=== PATIENT | female | born 1945 | race Two or more races ===

== ENCOUNTER 2016-06-29 10:38 | Emergency (ER) | payer MEDICARE, BC ==
[2016-06-29 11:20] VITALS: BP 151/74
--- NOTE | 2016-06-29 12:14 | UC ---
Throat Pain/Nasal Celio HPI - HPI Summary HPI Summary: Had a day or two of R-sided throat pain starting 06/20/16. Pain improved but then she developed throat irritation and itching that leads to lots of coughing with speaking or when she tries to sleep. Denies fever or trouble breathing. Has been having increase in thin clear watery drainage from the nose, states is is not mucusy. - History of Current Complaint Chief Complaint: UCGeneralIllness Stated Complaint: SORE THROAT,COUGH Time Seen by Provider: 06/29/16 11:56 Hx Obtained From: Patient ?: No Onset/Duration: Gradual Onset, Lasting Days Severity: Mild Cough: Nonproductive Associated Signs & Symptoms: Positive: Nasal Discharge - Allergies/Home Medications Allergies/Adverse Reactions: Allergies Allergy/AdvReac Type Severity Reaction Status Date / Time CI Pigment Blue 63 Allergy Intermediate Nausea Verified 06/29/16 11:20 [From Pradaxa] Dabigatran [From Pradaxa] Allergy Intermediate Nausea Verified 06/29/16 11:20 Rivaroxaban [From Xarelto] Allergy Intermediate Coughing Verified 06/29/16 11:20 Yellow Dye [From Pradaxa] Allergy Intermediate Nausea Verified 06/29/16 11:20 Hydrochlorothiazide Allergy Unknown Unknown Verified 06/29/16 11:20 [From Zestoretic] Reaction Details Lisinopril [From Zestoretic] Allergy Unknown Unknown Verified 06/29/16 11:20 Reaction Details Environmental Allergies Allergy Intermediate Eyes Uncoded 06/29/16 11:20 Itchy/Swollen/Red/Watery Home Medications: Home Medications Acetaminophen [Tylenol] 1 cap PO Q4HR PRN 06/29/16 [History Confirmed 06/29/16] PMH/Surg Hx/FS Hx/Imm Hx Endocrine History Of: Reports: Thyroid Disease - nodules Denies: Diabetes Cardiovascular History Of: Reports: Cardiac Disorders - afib, Hypertension, Atrial Fibrillation Denies: Pacemaker/ICD, Congestive Heart Failure Respiratory History Of: Denies: COPD, Asthma GI/ History Of: Reports: Renal Disease - kidney cysts Denies: Ulcer Cancer History Of: Denies: Breast Cancer Other History Of: Negative For: Anticoagulant Therapy - Surgical History Surgical History: Yes Surgery Procedure, Year, and Place: Rt KNEE ARTHROSCOPY-03/2010 MOLE REMOVED TONSILECTOMY - Family History Known Family History: Positive: Hypertension - Social History Alcohol Use: None Substance Use Type: None Smoking Status (MU): Former Smoker Type: Cigarettes Amount Used/How Often: social Have You Smoked in the Last Year: No When Did the Patient Quit Smoking/Using Tobacco: quit in her 30's Review of Systems Constitutional: Negative Skin: Negative Eyes: Negative ENT: Sore Throat, Nasal Discharge Respiratory: Cough Cardiovascular: Negative Gastrointestinal: Negative Genitourinary: Negative Motor: Negative Neurovascular: Negative Musculoskeletal: Negative Neurological: Negative Psychological: Negative All Other Systems Reviewed And Are Negative: Yes Physical Exam Triage Information Reviewed: Yes Appearance: Well-Appearing, No Pain Distress, Well-Nourished Vital Signs: Initial Vital Signs Temp 98.2 F 06/29/16 11:14 Pulse 74 06/29/16 11:14 Resp 16 06/29/16 11:14 BP 151/74 06/29/16 11:14 Pulse Ox 98 06/29/16 11:14 Vital Signs Reviewed: Yes Eye Exam: Normal Eyes: Positive: Conjunctiva Clear ENT: Positive: Hearing grossly normal, Nasal congestion, TMs normal. Negative: Tonsillar swelling, Tonsillar exudate Dental Exam: Other - dentures Neck exam: Other - goiter Neck: Positive: Nontender Respiratory Exam: Normal Respiratory: Positive: Chest non-tender, Lungs clear, Normal breath sounds, No respiratory distress, No accessory muscle use Cardiovascular Exam: Normal Cardiovascular: Positive: RRR, No Murmur Musculoskeletal Exam: Normal Neurological Exam: Normal Psychological Exam: Normal Skin Exam: Normal Throat Pain/Nasal Course/Dx - Differential Dx/Diagnosis Provider Diagnoses: allergic rhinitis. post-nasal drip Discharge - Discharge Plan Condition: Stable Disposition: HOME Prescriptions: Cetirizine* [ZyrTEC 10 MG TAB*] 10 mg PO DAILY #30 tab Fluticasone NASAL SPRAY 50MCG* [Flonase NASAL SPRAY 50MCG*] 2 spray BOTH NARES DAILY #1 btl Patient Education Materials: Allergic Rhinitis (ED) Referrals: Cherelle Dsouza MD [Primary Care Provider] - Additional Instructions: Remember it can take several days for the nasal spray to take full effect. If you have no improvement (or any significant worsening) in the next week or so, please see your primary care provider right away.
== END 2016-06-29 12:15 | disposition home or self-care (01) ==
LOC: UCEAST 10:38
DX: J30.9 Allergic rhinitis, unspecified (principal); R09.82 Postnasal drip; E04.1 Nontoxic single thyroid nodule; I48.91 Unspecified atrial fibrillation; I10 Essential (primary) hypertension; Z87.891 Personal history of nicotine dependence
CPT/HCPCS: 99212; G0463

== ENCOUNTER 2016-11-17 20:28 | Emergency (ER) | payer MEDICARE, BC ==
[2016-11-17 20:36] VITALS: BP 154/82
--- NOTE | 2016-11-17 21:50 | UC ---
Skin Complaint HPI - HPI Summary HPI Summary: Patient presents to the with avulsion to the right distal little finger from a cheese grater which occurred 1 hour ago. Minimal blood loss. Denies blood thinners. Nail is intact. Good pulses +2 bilaterally and good capillary refill. She has injured this area of skin previously. She denies pain. Small avulsion measuring 1cm in the distal tip with no exposed fracture or bone. - History of Current Complaint Chief Complaint: UCLaceration Time Seen by Provider: 11/17/16 20:40 Stated Complaint: FINGER LAC Hx Obtained From: Patient ?: No Onset/Duration: Sudden Onset Timing: Constant Onset Severity: Moderate Current Severity: Moderate Pain Intensity: 4 Pain Scale Used: 0-10 Numeric Location: Hand (Left) Character: Pain Aggravating: Nothing Alleviating: Nothing Related History: Trauma - Allergy/Home Medications Allergies/Adverse Reactions: Allergies Allergy/AdvReac Type Severity Reaction Status Date / Time CI Pigment Blue 63 Allergy Intermediate Nausea Verified 11/17/16 20:36 [From Pradaxa] Dabigatran [From Pradaxa] Allergy Intermediate Nausea Verified 11/17/16 20:36 Rivaroxaban [From Xarelto] Allergy Intermediate Coughing Verified 11/17/16 20:36 Yellow Dye [From Pradaxa] Allergy Intermediate Nausea Verified 11/17/16 20:36 Hydrochlorothiazide Allergy Unknown Unknown Verified 11/17/16 20:36 [From Zestoretic] Reaction Details Lisinopril [From Zestoretic] Allergy Unknown Unknown Verified 11/17/16 20:36 Reaction Details Environmental Allergies Allergy Intermediate Eyes Uncoded 06/29/16 11:20 Itchy/Swollen/Red/Watery Review of Systems Constitutional: Negative Skin: Other - avulsion Eyes: Negative Respiratory: Negative Cardiovascular: Negative Neurovascular: Negative Musculoskeletal: Negative Neurological: Negative All Other Systems Reviewed And Are Negative: Yes PMH/Surg Hx/FS Hx/Imm Hx Previously Healthy: Yes Other History Of: Negative For: Anticoagulant Therapy - Surgical History Surgical History: Yes Surgery Procedure, Year, and Place: Rt KNEE ARTHROSCOPY-03/2010, MOLE REMOVED, TONSILECTOMY, CARDIAC ABLATION FOR ATRIAL FIB - Family History Known Family History: Positive: Hypertension - Social History Occupation: Unemployed, Retired Lives: With Family Alcohol Use: None Substance Use Type: None Smoking Status (MU): Former Smoker Type: Cigarettes Amount Used/How Often: social Have You Smoked in the Last Year: No When Did the Patient Quit Smoking/Using Tobacco: quit in her 30's - Immunization History Most Recent Tetanus Shot: <5 YEARS ( OF 11/17/16) Physical Exam Triage Information Reviewed: Yes Appearance: Well-Appearing, No Pain Distress, Well-Nourished Vital Signs: Initial Vital Signs Temp 98.6 F 11/17/16 20:31 Pulse 67 11/17/16 20:31 Resp 16 11/17/16 20:31 BP 154/82 11/17/16 20:31 Vital Signs Reviewed: Yes Eye Exam: Normal Eyes: Positive: Conjunctiva Clear Neck exam: Normal Neck: Positive: Supple Respiratory Exam: Normal Respiratory: Positive: Chest non-tender, Normal breath sounds Cardiovascular Exam: Normal Musculoskeletal Exam: Normal Musculoskeletal: Positive: Strength Intact Neurological: Positive: Alert Psychological: Positive: Normal Response To Family, Age Appropriate Behavior Skin: Positive: Other - 1cm avulsion to distal tip Course/Dx - Course Course Of Treatment: wound cleansed and irrigated with NS. occlusive form ( xeroform) gauze applied, finger gauze applied and taped. Patient given care instructions to change the dressing once daily x 3 days. No abx needed. Tetanus UTD x 4 years ago. - Differential Diagnoses - Skin Complaint Differential Diagnoses: Other - laceration, puncture wound, abrasion - Diagnoses Provider Diagnoses: Skin Avulsion Discharge - Discharge Plan Condition: Stable Disposition: HOME Patient Education Materials: Skin Avulsion (ED) Referrals: Cherelle Dsouza MD [Primary Care Provider] - Additional Instructions: Change dressing daily for 3 days
== END 2016-11-17 21:17 | disposition home or self-care (01) ==
LOC: UCEAST 20:28
DX: S61.206A Unspecified open wound of right little finger without damage to nail, initial encounter (principal); W27.4XXA Contact with kitchen utensil, initial encounter; Y93.9 Activity, unspecified; Y92.9 Unspecified place or not applicable; Z87.891 Personal history of nicotine dependence
CPT/HCPCS: 99212; G0463